=== PATIENT | male | born 1945 | race Caucasian/White ===

== ENCOUNTER 2017-01-08 21:20 | Emergency (ER) | payer MEDICARE ==
[2017-01-08] MEDS ORDERED: HYDROCODONE/APAP 7.5/325MG TABLET PO ONE (21:44)
[2017-01-08] MEDS ORDERED: DIAZEPAM 5 MG TABLET PO ONE (21:44)
--- NOTE | 2017-01-08 21:49 | Emergency Department Record ---
History of Present Illness - General Chief Complaint: Back Pain/Injury Stated Complaint: WEAKNESS Time Seen by Provider: 01/08/17 21:44 Source: Patient Mode of Arrival: Ambulatory Limitations: No limitations - History of Present Illness Initial Comments: 71 yo male presents to ED with a CC of worsening back pain symptoms today, believes that he strained his back earlier today. Patient denies lower extremity weakness, denies bladder retention, denies groin numbness, and denies bowel incontinence symptoms. Patient denies fevers, chills, or recent illness. Patient reports taking (2) aspirin which did not help much. Patient denies specific traumatic injury to the spine. MD Complaint: Back pain Onset/Timin -: Hour(s) Similar Symptoms Previously: No Radiation: None Severity: Severe Severity scale (1-10): 9 Quality: Aching Consistency: Constant Improves With: None Worsens With: None Context: Unknown Associated Symptoms: Denies other symptoms Treatments Prior to Arrival: Other medications Treatment Prior to Arrival Comment:: Prilosec for upset stomach - Related Data Home Medications Medication Instructions Recorded Confirmed Last Taken Aspirin 325 mg PO DAILY 01/08/17 01/08/17 01/08/17 Atenolol 50 mg PO DAILY 01/08/17 01/08/17 01/08/17 Omeprazole 40 mg PO DAILY 01/08/17 01/08/17 01/08/17 Allergies Allergy/AdvReac Type Severity Reaction Status Date / Time Penicillins Allergy ANAPHYLAXIS Verified 01/08/17 21:33 Travel Screening - Travel/Exposure Within Last 30 Days Have you traveled within the last 30 days?: No - Travel Symptoms Symptom Screening: None Review of Systems Constitutional: Denies: Chills, Fever, Malaise, Night sweats Eyes: Denies: Eye discharge, Eye pain ENT: Denies: Congestion, Ear pain, Epistaxis Respiratory: Denies: Cough, Dyspnea Cardiovascular: Denies: Chest pain, Dyspnea on exertion Endocrine: Denies: Fatigue, Heat or cold intolerance Gastrointestinal: Denies: Abdominal pain, Nausea, Vomiting Genitourinary: Denies: Incontinence, Retention Musculoskeletal: Reports: Back pain. Denies: Arthralgia, Gout, Joint swelling Skin: Denies: Bruising, Change in color Neurological: Denies: Abnormal gait, Confusion, Headache, Numbness, Seizure, Weakness Psychiatric: Denies: Anxiety Hematological/Lymphatic: Denies: Anemia, Blood Clots Past Medical History - SOCIAL HISTORY Smoking Status: Never smoker Alcohol Use: None Drug Use: None - RESPIRATORY Hx Respiratory Disorders: No - CARDIOVASCULAR Hx Cardio Disorders: Yes Hx Hypertension: Yes - NEURO Hx Neuro Disorders: No - GI Hx GI Disorders: No - Hx Genitourinary Disorders: No - ENDOCRINE Hx Endocrine Disorders: No - MUSCULOSKELETAL Hx Musculoskeletal Disorders: No - PSYCH Hx Psych Problems: No - HEMATOLOGY/ONCOLOGY Hx Hematology/Oncology Disorders: No Family Medical History Any Significant Family History?: No Family Hx Comment (NOT TO BE USED IN PLACE OF ITEMS BELOW): denies Physical Exam - General General Appearance: Alert, Oriented x3, Cooperative, Moderate distress (appears in pain on examination) Limitations: No limitations - Head Head exam: Atraumatic, Normocephalic, Normal inspection Head exam detail: negative: Abrasion, Contusion, Alvarado's sign, General tenderness, Hematoma, Laceration - Eye Eye exam: Normal appearance. negative: Conjunctival injection, Periorbital swelling, Periorbital tenderness, Scleral icterus - ENT Ear exam: negative: Auricular hematoma, Auricular trauma Nasal Exam: negative: Active bleeding, Discharge, Dried blood, Foreign body Mouth exam: negative: Drooling, Laceration, Muffled voice, Tongue elevation - Neck Neck exam: Normal inspection. negative: Meningismus, Tenderness - Respiratory Respiratory exam: Normal lung sounds bilaterally. negative: Rales, Respiratory distress, Rhonchi, Stridor - Cardiovascular Cardiovascular Exam: Regular rate, Normal rhythm, Normal heart sounds - GI/Abdominal GI/Abdominal exam: Soft. negative: Rebound, Rigid, Tenderness - Rectal Rectal exam: Deferred - exam: Deferred - Extremities Extremities exam: Normal inspection. negative: Pedal edema, Tenderness - Back Back exam: Reports: Paraspinal tenderness (Low lumbar region/SI joint region on the left). Denies: CVA tenderness (R), CVA tenderness (L), Rash noted - Neurological Neurological exam: Alert, Oriented X3, Other (EHL, dorsiflexion/plantar flexion , lower extremity extension are 5/5 and intact.). negative: Motor sensory deficit - Psychiatric Psychiatric exam: Normal affect, Normal mood - Skin Skin exam: Normal color. negative: Abrasion Type of lesion: negative: abrasion Course Vital Signs 01/08/17 21:31 Temperature 97.4 F L Pulse Rate [ 60 Pulse Ox Probe] Respiratory 24 Rate Blood Pressure 121/71 [Left Arm] Pulse Ox 94 L - Reevaluation(s) Reevaluation #1: 01/08/17 22:20 CT Abdomen and Pelvis: 7.0 cm infra-renal ruptured AAA. Son updated on CT imaging results and need for emergency blood transfusion/ transfer, patient is still in CT currently. Case was discussed with Dr. Peña ([facility]) and (ED physician), will accept transfer for operative repair. Reevaluation #2: 01/08/17 22:35 2 Unites infusing, 3rd IV line initiated, and 3rd unite PRBC strating to infuse. EMS is present for transfer. BP 65/29, pulse 75, RR 26, 97% RA Reevaluation #3: 01/08/17 22:40 4th Unit PRBCs is currently infusing with (3) large-bore IVs established. Patient is being taken to [facility] currently. 183/144, pulse 73, RR 24. Medical Decision Making - Lab Data Result diagrams: 01/08/17 22:21 01/08/17 22:21 Critical Care Time Critical Care Time: Yes Total Critical Care Time: 35 Critical Care Time: Diagnosis and treatment for ruptured AAA, transfusion of 4 unites O negative blood, initiation of transfer to receiving facility, counseling both patient and hsi son on plan of care and emergent need for transfer. Disposition Disposition: Transfer Clinical Impression: Ruptured abdominal aortic aneurysm (AAA) Disposition: Acute Care Hospital Transfer Transfer To: [facility] Reason For Transfer: Ruptured AAA Accepting Physician: /Jovany Time Discussed w/Accepting Physician: 22:26 Condition: (5) Critical Forms: Patient Portal Access Time of Disposition: 22:26
[2017-01-08 22:29] LABS: BASO % 0.2 % (0-6); EOS % 0.5 % (0-6); HEMATOCRIT 40.9 % (42.0-52.0); HEMOGLOBIN 13.7 gm/dl (14.0-18.0); LYMPH % 9.2 % (16-45); MEAN CELL VOLUME 96.2 fl (81-97); MEAN CORPUSCULAR HEMOGLOBIN 32.2 pg (27-33); MEAN CORPUSCULAR HGB CONC 33.5 g/dl (32-36); MEAN PLATELET VOLUME 10.3 fl (7.4-10.4); PLATELET COUNT 178 K/uL (130-400); RED BLOOD COUNT 4.25 M/uL (4.40-5.70); RED CELL DISTRIBUTION WIDTH 14.3 % (11.5-14.5); WHITE BLOOD COUNT W/O DIFF 13.7 K/uL (4.2-12.2)
[2017-01-08 22:45] LABS: ALB/GLOB RATIO 1.2 (1.1-1.8); ALBUMIN 3.3 gm/dL (3.5-5.0); ALKALINE PHOSPHATASE 79 U/L (38-126); ALT/SGPT 20 U/L (21-72); ANION GAP 5.8 (7-16); AST/SGOT 21 U/L (17-59); BILIRUBIN,TOTAL 0.38 mg/dL (0.2-1.3); BLOOD UREA NITROGEN 17 mg/dL (9-20); CARBON DIOXIDE 25.2 mmol/L (22-30); EST GLOMERULAR FILTRATION RATE > 60 ml/min; GLUCOSE,RANDOM 229 mg/dL (70-110)
[2017-01-08 23:45] LABS: ABO GROUP A; ANTIBODY SCREEN NEGATIVE (NEGATIVE); RH TYPE POSITIVE
[2017-01-08 23:48] LABS: IMMED. SPIN CROSSMATCH COMPATIBLE
[2017-01-08 23:51] LABS: IMMED. SPIN CROSSMATCH COMPATIBLE
[2017-01-08 23:52] LABS: IMMED. SPIN CROSSMATCH COMPATIBLE
== END 2017-01-08 22:42 | disposition short-term general hospital (02) ==
LOC: ER 21:20
DX: I71.3 Abdominal aortic aneurysm, ruptured (principal); R61 Generalized hyperhidrosis; I10 Essential (primary) hypertension
CPT/HCPCS: 36430; 99291 ×2; 80053; 85027; 86900; 86901; 86850; 74176; P9016; J3490